=== PATIENT | male | born 1980 | race Caucasian/White ===

== ENCOUNTER → 2017-01-29 | Outpatient (REF) | payer BC ==
[2017-01-29 13:13] LABS: PERCENT SATURATION 58.3 % (19.7-37.4)
== END ==
LOC: M LAB REF 11:33
PROVIDERS: ATTEND Internal Medicine Medical Oncology
DX: E83.110 Hereditary hemochromatosis (principal)

== ENCOUNTER → 2017-05-07 | Outpatient (REF) | payer BC ==
[2017-05-07 14:07] LABS: PERCENT SATURATION 41.9 % (19.7-37.4)
== END ==
LOC: M LAB REF 13:31
PROVIDERS: ATTEND Internal Medicine Medical Oncology
DX: E83.110 Hereditary hemochromatosis (principal)

== ENCOUNTER → 2017-08-14 | Outpatient (REF) | payer BC, OTHER, SELFPAY ==
[2017-08-14 14:00] LABS: PERCENT SATURATION 43.9 % (19.7-50.0)
== END ==
LOC: M LAB REF 12:45
PROVIDERS: ATTEND Internal Medicine Medical Oncology
DX: E83.119 Hemochromatosis, unspecified (principal)

== ENCOUNTER → 2017-08-26 | Outpatient (CLI) | payer OTHER ==
--- NOTE | 2017-08-26 08:29 | REP ---
Clinical: History of hemochromatosis. Comparison: 07/26/2015. Technique: Real time estrada scale and color evaluation using curved array transducer. Findings: The liver is increased in echogenicity with areas of focal fatty sparing and no obvious significant focal hepatic mass lesion or abnormality by ultrasound. Spleen is mildly enlarged measuring approximately 12.5 cm in craniocaudal length. Visualized portions of the pancreas are unremarkable but limited due to interposed bowel gas. Gallbladder is normal and without gallstones, wall thickening, or pericholecystic fluid. Biliary ductal dilatation is appreciated and the common bile duct measures 5.1 mm diameter. Bilateral kidneys are normal in reniform shape without hydronephrosis. Right kidney measures 12.0 x 7.4 x 5.6 cm with suggestions for partial duplication. Left kidney measures 12.3 x 8.6 x 6.0 cm and appears normal. Abdominal aorta is incompletely evaluated due to interposed bowel gas. No ascites. Impression: 1. Continued evidence for hepatosteatosis/hepatocellular disease without obvious focal hepatic lesion. 2. Mild splenomegaly cannot be excluded. Signed by Simon Ennis MD 08/26/2017 08:21 A
== END ==
LOC: M RAD 07:14
PROVIDERS: ATTEND Internal Medicine Medical Oncology
DX: K92.0 Hematemesis (principal)

== ENCOUNTER → 2017-11-18 | Outpatient (REF) | payer OTHER ==
[2017-11-18 19:40] LABS: PERCENT SATURATION 30.4 % (19.7-50.0)
== END ==
LOC: M LAB REF 18:29
PROVIDERS: ATTEND Internal Medicine Medical Oncology
DX: E83.119 Hemochromatosis, unspecified (principal)

== ENCOUNTER → 2018-02-14 | Outpatient (REF) | payer OTHER ==
[2018-02-14 14:00] LABS: FERRITIN 63 NG/ML (26-388); IRON (FE) 94 UG/DL (65-175); PERCENT SATURATION 34.8 % (19.7-50.0); TOTAL IRON BINDING CAPACITY 270 UG/DL (250-450)
== END ==
LOC: M LAB REF 12:53
DX: E83.119 Hemochromatosis, unspecified (principal)
CPT/HCPCS: 83550

== ENCOUNTER → 2018-06-02 | Outpatient (REF) | payer OTHER, BC ==
[2018-06-02 14:26] LABS: FERRITIN 129 NG/ML (26-388); IRON (FE) 159 UG/DL (65-175); PERCENT SATURATION 52.3 % (19.7-50.0); TOTAL IRON BINDING CAPACITY 304 UG/DL (250-450)
== END ==
LOC: M LAB REF 13:35
DX: D50.9 Iron deficiency anemia, unspecified (principal)

== ENCOUNTER → 2018-06-20 | Outpatient (CLI) | payer OTHER ==
[~2018-06-20] MED LIST: GASTROGRAFIN SOLUTION 30ML (Q9963) As Ordered; ISOVUE-370 76% 100ML VIAL (Q9967) As Ordered
== END ==
LOC: M RAD 14:28
DX: R93.2 Abnormal findings on diagnostic imaging of liver and biliary tract (principal); E83.119 Hemochromatosis, unspecified
CPT/HCPCS: Q9963

== ENCOUNTER → 2020-09-01 | Outpatient (REF) | payer OTHER ==
[2020-09-01 15:38] LABS: CHOLESTEROL RISK RATIO 2.516 (<5); THYROID STIMULATING HORMONE 0.838 uIU/ML (0.358-3.740)
== END ==
LOC: M SFHCPLAZ 13:35
PROVIDERS: ATTEND Family Medicine
DX: Z13.220 Encounter for screening for lipoid disorders (principal); R07.0 Pain in throat

== ENCOUNTER → 2020-12-07 | Outpatient (REF) | payer OTHER | LOC: M LAB REF 09:39 | PROVIDERS: ATTEND Physician Assistant | DX: Z20.828 Contact with and (suspected) exposure to other viral communicable diseases (principal) ==

== ENCOUNTER → 2023-02-19 | Outpatient (CLI) | payer OTHER ==
[2023-02-19 17:57] LABS: HEMOGLOBIN A1c 5.2 % (4.0-6.0)
[2023-02-19 18:06] LABS: CHOLESTEROL RISK RATIO 2.81 (<5); HDL CHOLESTEROL 46.5 MG/DL (>40); LDL CHOLESTEROL 58.9 MG/DL (<100); NON-HDL-C 84.5 MG/DL
[2023-02-19 18:09] LABS: THYROID STIMULATING HORMONE 1.923 uIU/ML (0.55-4.78)
== END ==
LOC: M PLALAB 15:17
PROVIDERS: ATTEND Physician Assistant
DX: I10 Essential (primary) hypertension (principal)

== ENCOUNTER → 2023-10-28 | Outpatient (CLI) | payer OTHER ==
[~2023-10-28] MED LIST changes: -GASTROGRAFIN SOLUTION 30ML (Q9963) As Ordered; -ISOVUE-370 76% 100ML VIAL (Q9967) As Ordered; +LISI20TA33 PO
== END ==
LOC: M PLAIMG 13:47
PROVIDERS: ATTEND Physician Assistant
DX: M47.812 Spondylosis without myelopathy or radiculopathy, cervical region (principal); M47.814 Spondylosis without myelopathy or radiculopathy, thoracic region; M54.2 Cervicalgia

== ENCOUNTER → 2024-04-01 | Outpatient (REF) | payer OTHER ==
[2024-04-01 11:34] LABS: CHOLESTEROL RISK RATIO 2.82 (<5); HDL CHOLESTEROL 43.5 MG/DL (>40); LDL CHOLESTEROL 65.1 MG/DL (<100); NON-HDL-C 79.5 MG/DL
[2024-04-01 11:36] LABS: THYROID STIMULATING HORMONE 0.999 uIU/ML (0.55-4.78)
[2024-04-01 11:38] LABS: HEMOGLOBIN A1c 5.3 % (4.0-6.0)
== END ==
LOC: M LAB REF 10:29
PROVIDERS: ATTEND Physician Assistant
DX: J31.0 Chronic rhinitis (principal); T78.40XA Allergy, unspecified, initial encounter; Z13.220 Encounter for screening for lipoid disorders; Z68.36 Body mass index [BMI] 36.0-36.9, adult

== ENCOUNTER → 2025-07-22 | Outpatient (CLI) | payer OTHER ==
[~2025-07-22] MED LIST changes: +CONT1TAB
[2025-07-22 17:44] LABS: ESTIMATED AVERAGE GLUCOSE 103.0 MG/DL (60-110)
[2025-07-22 17:47] LABS: PSA SCREENING 0.83 NG/ML (< 4.00)
[2025-07-22 17:49] LABS: ALT/SGPT 41 U/L (7.0-40); AST/SGOT 30 U/L (<34); CALCIUM LEVEL 9.5 MG/DL (8.5-10.1); CARBON DIOXIDE LEVEL 28 MMOL/L (20-31); CHLORIDE LEVEL 102 MMOL/L (98-107); CHOLESTEROL LEVEL 139 MG/DL (<200); CHOLESTEROL RISK RATIO 2.90 (<5); CREATININE FOR GFR 0.97 MG/DL (0.70-1.30); GLOMERULAR FILTRATION RATE > 90.0 (>60); LDL CHOLESTEROL 55.0 MG/DL (<100); NON-HDL-C 91.2 MG/DL; POTASSIUM SERUM 4.4 MMOL/L (3.5-5.1); SODIUM LEVEL 140 MMOL/L (136-145); TRIGLYCERIDES LEVEL 181 MG/DL (<150)
[2025-07-22 17:50] LABS: FREE T4 1.13 NG/DL (0.89-1.76)
== END ==
LOC: M PLALAB 16:06
PROVIDERS: ATTEND Nurse Practitioner Family
DX: M79.601 Pain in right arm (principal); Z80.42 Family history of malignant neoplasm of prostate; Z13.29 Encounter for screening for other suspected endocrine disorder; Z13.220 Encounter for screening for lipoid disorders; Z13.1 Encounter for screening for diabetes mellitus
CPT/HCPCS: 36415; 80053; 80061; 83036; 84439; 84443; G0103

== ENCOUNTER → 2025-07-27 | Outpatient (CLI) | payer OTHER | LOC: M PLAIMG 08:29 | PROVIDERS: ATTEND Nurse Practitioner Family | DX: M66.821 Spontaneous rupture of other tendons, right upper arm (principal) ==